=== PATIENT | female | born 1995 | race Caucasian/White ===

== ENCOUNTER 2017-02-19 16:16 | Emergency (ER) | payer BC ==
[~2017-02-19] VITALS: Ht 152.4 cm; Wt 159.0 kg
[~2017-02-19 16:16] MED LIST: IBUP-1542 PO
[2017-02-19 16:18] VITALS: Ht 152.4 cm; Wt 159.0 kg
--- NOTE | 2017-02-19 17:56 | ERD ---
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 Medications Home Meds Active Scripts Ibuprofen* (Motrin*) 600 Mg Tab, 600 MG PO Q6, #30 TAB Prov:FARHANA KERR PA-C 07/15/15 Ibuprofen* (Motrin*) 600 Mg Tab, 600 MG PO Q6, #30 TAB Prov:ARIAS NATH 07/12/15 Allergies Allergies: Coded Allergies: No Known Allergy (Unverified , 09/26/13) PMhx/Soc History of Surgery: Yes (EARS) Anesthesia Reaction: No Hx Neurological Disorder: No Hx Respiratory Disorders: Yes (asthma) Hx Cardiac Disorders: No Hx Psychiatric Problems: No Hx Miscellaneous Medical Probl: No Hx Alcohol Use: No Hx Substance Use: No Hx Tobacco Use: No Physical Exam Vitals Vital Signs Date Time Temp Pulse Resp B/P Pulse Ox O2 Delivery O2 Flow Rate FiO2 02/19/17 16:18 98.0 115 18 165/79 99 Physical Exam Const: Obese, well-hydrated no acute distress Head: Eyes: ENT: Normal External Ears, Nose and Mouth. Neck: Resp: Respirations even and unlabored ,no respiratory distress, Cardio: Abd: Soft, obese non tender, non distended. No CVA tenderness Skin: Back: No midline or flank tenderness Ext: Neur: Awake and alert Psych: Normal Mood and Affect Results 24 hrs Laboratory Tests Test 02/19/17 18:06 Urine Color YELLOW Urine Clarity SLIGHTLY CLOUDY Urine pH 5.0 Bedside Urine pH (LAB) 6.0 Urine Specific [place] 1.023 Bedside Urine Protein (LAB) Negative Bedside Urine Glucose (UA) 0.1% Urine Ketones NEGATIVEmg/dL Bedside Urine Ketones (LAB) Negative Bedside Urine Blood 3+ Urine Nitrite NEGATIVEmg/dL Bedside Urine Nitrite (LAB) Negative Urine Bilirubin NEGATIVEmg/dL Urine Urobilinogen 2+mg/dL Urine Leukocyte Esterase 1+Sarah/ul Bedside Urine Leukocyte Esterase (L Trace Urine Microscopic RBC 14/HPF Urine Microscopic WBC 23/HPF Urine Squamous Epithelial Cells MODERATE/HPF Urine Bacteria FEW/HPF Urine Mucus FEW/HPF Urine Hemoglobin 3+mg/dL Urine Glucose 1+mg/dL Urine Total Protein NEGATIVEmg/dl Current Medications Medications (Trade) Dose Ordered Sig/Leobardo Route PRN Reason Start Time Stop Time Status Last Admin Dose Admin Ibuprofen (Motrin) 600 mg ONCE ONCE PO 02/19/17 18:00 02/19/17 18:01 DC 02/19/17 18:13 Procedures/MDM This 21-year-old female presents to emergency department with bilateral pelvic pain, denies dysuria, hematuria, or normal vaginal discharge. Patient reports that she started menstruating yesterday and that is when the pain started. Patient reports she does not usually have dysmenorrhea, has not taken anything for pain, emergency room course includes history and physical exam unremarkable for acute abdominal pain, patient urine sent for urinalysis positive for leukocytosis, and microscopic hematuria, and needed for nitrates. To discharge patient home on Macrobid 100 mg 1 tab p.o. twice daily 7 days, instructed to follow-up with primary care physician for repeat urinalysis if symptoms persist after antibiotic course is complete, return to emergency department times fail to improve as anticipated. Patient is stable with no new complaints during ER course, clinically there is no current evidence to suggest pyelonephritis, acute abdomen, appendicitis, cholecystitis or any other emergent condition appearing to require further evaluation or hospitalization. I feel the patient is stable for discharge at this time. I have discussed results, examination findings, the treatment plan with the patient and family present prior to discharge. Indications for emergent reevaluation, side effects of medication were also discussed. All questions were answered. Patient verbalizes understanding and agrees with plan of care. Departure Diagnosis: Primary Impression: UTI (urinary tract infection) Urinary tract infection type: acute cystitis Hematuria presence: with hematuria Qualified Code: N30.01 - Acute cystitis with hematuria Condition: Good Patient Instructions: Understanding Urinary Tract Infections (UTIs) Referrals: [facility] Additional Instructions: Thank you for for coming to [facility] for your care today. Please ask your nurse or provider if you have questions about your care today and do not leave until all your questions have been answered. Please use any medications given as directed and follow-up with your doctor (or the doctor you were referred to) in the next 2-3 days. If you do not have a primary care doctor you may follow up at the [facility] (listed below). You may also use motrin and tylenol as needed for fever and/or pain unless instructed otherwise by your provider or nurse. Indications for more urgent follow-up have been discussed, but you may return to the Emergency Department at ANY time for any worrisome or worsening symptoms. If you have abdominal pain, please know that no test or exam you received is perfect and you should follow up within 8 hours for continued pain. If you had any imaging studies today, such as an X-Ray or CT Scan, these studies will be reviewed later by a radiologist. You will be called if there are important findings that were not identified today, so make sure the contact information you provided at registration is correct. If you received any narcotic pain control medicine today, such as Vicodin, Morphine or Dilaudid, your coordination and judgment may be affected for a number of hours. Please do not drive or operate heavy machinery, and you may want someone to assist you at home. If you were given a prescription for narcotic medication, be aware that it is very addictive- use sparingly and only if necessary. RJ CHAN Feb 19, 2017 17:56
[2017-02-19] MEDS ORDERED: IBUPROFEN 600 MG TAB PO ONE (18:00)
[2017-02-19] MEDS ORDERED: NITR-58 PO (19:18)
[2017-02-19 19:24] VITALS: TEMP 98.5
== END 2017-02-19 19:25 | disposition home or self-care (01) ==
LOC: FTE 16:16
DX: N30.01 Acute cystitis with hematuria (principal); J45.909 Unspecified asthma, uncomplicated
CPT/HCPCS: 81001; 99283; Z7610; 81003

== ENCOUNTER 2018-05-21 19:39 | Emergency (ER) | payer BC ==
[~2018-05-21] VITALS: Wt 147.3 kg
[~2018-05-21 19:39] MED LIST changes: +NITR-58 PO
[2018-05-21 19:44] VITALS: BP 166/91; PULSE 85; RESP 18
[2018-05-21] MEDS ORDERED: CEPH-443 PO (20:56)
--- NOTE | 2018-05-21 21:14 | ERD ---
ER Documentation Chief Complaint Chief Complaint DYSURIA X'S 3 DAYS HPI 22-year-old female presents complaining of painful urination, frequency and urgency for the past 3 days. Admits to having pelvic pressure [place] any flank pain. Denies fevers. Denies hematuria. Denies any vaginal discharge or pruritus ROS All systems reviewed and are negative except as per history of present illness. Medications Home Meds Active Scripts Cephalexin* (Keflex*) 500 Mg Capsule, 500 MG PO BID for 7 Days, CAP Prov:LOKI LANGSTON PA-C 05/21/18 Nitrofurantoin Monohyd Macrocr* (Macrobid*) 100 Mg Capsr, 100 MG PO BID for 7 Days, #14 CAP Prov:DUSTINRJ 02/19/17 Ibuprofen* (Motrin*) 600 Mg Tab, 600 MG PO Q6, #30 TAB Prov:FARHANA KERR PA-C 07/15/15 Ibuprofen* (Motrin*) 600 Mg Tab, 600 MG PO Q6, #30 TAB Prov:ARIAS NATH 07/12/15 Allergies Allergies: Coded Allergies: No Known Allergy (Unverified , 09/26/13) PMhx/Soc History of Surgery: Yes (EARS) Anesthesia Reaction: No Hx Neurological Disorder: No Hx Respiratory Disorders: Yes (asthma) Hx Cardiac Disorders: No Hx Psychiatric Problems: No Hx Miscellaneous Medical Probl: No Hx Alcohol Use: No Hx Substance Use: No Hx Tobacco Use: No Smoking Status: Never smoker Physical Exam Vitals Vital Signs Date Temp Pulse Resp B/P (MAP) Pulse Ox O2 O2 Flow FiO2 Time Delivery Rate 05/21/18 99.2 85 18 166/91 99 19:44 (116) Physical Exam Const: No acute distress Head: Atraumatic Eyes: Normal Conjunctiva ENT: Normal External Ears, Nose and Mouth. Neck: Full range of motion. No meningismus. Resp: Clear to auscultation bilaterally Cardio: Regular rate and rhythm, no murmurs Abd: Soft, non tender, non distended. Normal bowel sounds Skin: No petechiae or rashes Back: No midline or flank tenderness Ext: No cyanosis, or edema Neur: Awake and alert Psych: Normal Mood and Affect Results 24 hrs Laboratory Tests Test 05/21/18 20:30 05/21/18 21:02 Bedside Urine pH (LAB) 6.0 Bedside Urine Protein (LAB) Negative Bedside Urine Glucose (UA) Negative Bedside Urine Ketones (LAB) Negative Bedside Urine Blood Negative Bedside Urine Nitrite (LAB) Negative Bedside Urine Leukocyte Esterase (L Trace POC Beta HCG, Qualitative NEGATIVE Procedures/MDM 22-year-old female presents to the ER with urinary tract infection. Low suspici on for pyelonephritis, nephrolithiasis, ovarian torsion due to physical examination and diagnostic testing. stable for discharge. Prescriptions have been given to take as directed. Strict precautions were given to return to the ER if not improving as expected or for any worsening signs and symptoms Departure Diagnosis: Primary Impression: UTI (urinary tract infection) Condition: Stable Patient Instructions: Understanding Urinary Tract Infections (UTIs) Referrals: [facility] (PCP) Additional Instructions: FOLLOW UP WITH YOUR PRIMARY CARE PHYSICIAN TOMORROW.Return to this facility if you are not improving as expected. Take all medicines as directed. Return to this facility if you are not improving as expected. LOKI LANGSTON PA-C May 21, 2018 21:14
== END 2018-05-21 21:22 | disposition home or self-care (01) ==
LOC: FTE 19:39
DX: N39.0 Urinary tract infection, site not specified (principal); J45.909 Unspecified asthma, uncomplicated; R10.2 Pelvic and perineal pain
CPT/HCPCS: 81003; 81025; 87591; 99283

== ENCOUNTER 2018-09-20 10:53 | Emergency (ER) | payer BC ==
[~2018-09-20] VITALS: Ht 157.5 cm; Wt 142.2 kg
[~2018-09-20 10:53] MED LIST changes: +CEPH-443 PO
[2018-09-20 10:55] VITALS: Ht 157.5 cm; Wt 142.2 kg
--- NOTE | 2018-09-20 11:30 | ERD ---
ER Documentation Chief Complaint Chief Complaint vag bleeding + test, back pain x1 day HPI 23-year-old female presenting with vaginal bleeding since this morning. She reports that she did a test from the [employer] store at home yesterday that showed that it was positive. She states that her last menstrual cycle was at the end of July beginning of August. She reports that this is her first possible . She denies any irregularities with her menstrual cycle normally. Reports this morning while she was wiping from the bathroom she noticed a little bit of blood and one small blood clot. She denies any large blood loss or history of blood clots vaginally. She is unsure about the age of the possible at this time. She has not had a chance to find an OB or get any ultrasounds yet. ROS All systems reviewed and are negative except as per history of present illness. Medications Home Meds Active Scripts Cephalexin* (Keflex*) 500 Mg Capsule, 500 MG PO BID for 7 Days, CAP Prov:LOKI LANGSTON PA-C 05/21/18 Nitrofurantoin Monohyd Macrocr* (Macrobid*) 100 Mg Capsr, 100 MG PO BID for 7 Days, #14 CAP Prov:DUSTINRJ 02/19/17 Ibuprofen* (Motrin*) 600 Mg Tab, 600 MG PO Q6, #30 TAB Prov:FARHANA KERR PA-C 07/15/15 Ibuprofen* (Motrin*) 600 Mg Tab, 600 MG PO Q6, #30 TAB Prov:ARIAS NATH 07/12/15 Allergies Allergies: Coded Allergies: No Known Allergy (Unverified , 09/26/13) PMhx/Soc History of Surgery: No Anesthesia Reaction: No Hx Neurological Disorder: No Hx Respiratory Disorders: Yes (Asthma) Hx Cardiac Disorders: No Hx Psychiatric Problems: No Hx Miscellaneous Medical Probl: No Hx Alcohol Use: No Hx Substance Use: No Hx Tobacco Use: No FmHx Family History: diabetes Physical Exam Vitals Vital Signs Date Temp Pulse Resp B/P (MAP) Pulse Ox O2 O2 Flow FiO2 Time Delivery Rate 09/20/18 98.1 77 18 122/75 98 Room Air 14:41 (91) 09/20/18 98.1 87 18 118/76 98 10:55 (90) Physical Exam Const: No acute distress Neck: Full range of motion. Resp: Clear to auscultation bilaterally Cardio: Regular rate and rhythm, no murmurs Abd: Soft, obese abd. Normal bowel sounds Back: Slight tenderness on left lower quadrant of her back Ext: No cyanosis, or edema Neur: Awake and alert Psych: Normal Mood and Affect Result Diagram: 09/20/18 1136 Results 24 hrs Laboratory Tests Test 09/20/18 11:35 09/20/18 11:36 Beta HCG, Quantitative < 2.4 mIU/ml White Blood Count 12.8 10^3/ul Red Blood Count 5.02 10^6/ul Hemoglobin 10.4 g/dl Hematocrit 35.0 % Mean Corpuscular Volume 69.7 fl Mean Corpuscular Hemoglobin 20.7 pg Mean Corpuscular Hemoglobin Concent 29.7 g/dl Red Cell Distribution Width 18.4 % Platelet Count 376 10^3/UL Mean Platelet Volume 10.6 fl Immature Granulocytes % 1.200 % Neutrophils % 64.7 % Lymphocytes % 28.2 % Monocytes % 4.3 % Eosinophils % 1.3 % Basophils % 0.3 % Nucleated Red Blood Cells % 0.0 /100WBC Immature Granulocytes # 0.150 10^3/ul Neutrophils # 8.3 10^3/ul Lymphocytes # 3.6 10^3/ul Monocytes # 0.6 10^3/ul Eosinophils # 0.2 10^3/ul Basophils # 0.0 10^3/ul Nucleated Red Blood Cells # 0.0 10^3/ul Urine Color YELLOW Urine Clarity SLIGHTLY CLOUDY Urine pH 7.0 Urine Specific [place] 1.012 Urine Ketones NEGATIVE mg/dL Urine Nitrite NEGATIVE mg/dL Urine Bilirubin NEGATIVE mg/dL Urine Urobilinogen NEGATIVE mg/dL Urine Leukocyte Esterase NEGATIVE Sarah/ul Urine Microscopic RBC 26 /HPF Urine Microscopic WBC 0 /HPF Urine Hemoglobin 3+ mg/dL Urine Glucose NEGATIVE mg/dL Urine Total Protein NEGATIVE mg/dl Procedures/MDM ED COURSE: The patient was stable throughout ED course. I kept the patient and family informed of laboratory and diagnostic imaging results throughout the ED course. MEDICATIONS GIVEN: [None.] MEDICAL DECISION MAKING: Patient is a 23-year-old female presenting with onset of vaginal bleeding this morning. She reports that she did a test from [employer] yesterday which resulted in her thinking she was along with her not having a menstrual cycle since end of July start of August. However with the urinalysis done in the ER showed that she was not at this time. Quantitative b-HCG was < 2.4. CBC showed no evidence of systemic infection. Given these findings, I have a much lower clinical concern for ectopic , ruptured ectopic pr egnancy, molar ,subchorionic hematoma, spontaneous , incomplete , complete , missed , placental abruption, placental previa, vasa previa, uterine rupture, anembyronic . Patient was recommended to follow-up with PRECISION AGRICULTURE TECHNICIAN for further evaluation and care. [facility]C[employer] A[employer]IC[employer]URE TECHNICIAN referral list was given to the patient. Her vital signs were reviewed. Patient is afebrile. Patient was not hypoxic. Patient was hemodynamically stable. PRESCRIPTION: none DISCHARGE: At this time, patient is stable for discharge and outpatient management. I have instructed the patient to follow-up with his/her primary care physician in 1-2 days. I have discussed with the patient the possibility of needing to see a specialist for further workup and imaging studies if symptoms persist. I have instructed the patient to promptly return to the ER for any new or worsening symptoms including increased pain, fever, nausea, vomiting, weakness or LOC. The patient and/or family expressed understanding of and agreement with this plan. All questions were answered. Home care instructions were provided. Disclaimer: Inadvertent spelling and grammatical errors are likely due to EHR/dictation software use and do not reflect on the overall quality of patient care. Also, please note that the electronic time recorded on this note does not necessarily reflect the actual time of the patient encounter. Departure Condition: Fair Patient Instructions: Dysfunctional Uterine Bleeding Referrals: [facility]ICULTURE TECHNICIAN REFERRAL LIST Additional Instructions: FOLLOW UP WITH YOUR PRIMARY CARE PHYSICIAN TOMORROW.Return to this facility if you are not improving as expected. AISHA BENOIT PA-C Sep 20, 2018 11:30
[2018-09-20 14:41] VITALS: BP 122/75; PULSE 77; RESP 18
== END 2018-09-20 14:44 | disposition home or self-care (01) ==
LOC: FTE 10:53
DX: N93.9 Abnormal uterine and vaginal bleeding, unspecified (principal); J45.909 Unspecified asthma, uncomplicated
CPT/HCPCS: 36415; 81001; 84702; 85025; 86900; 86901; 99283